=== PATIENT | female | born 1985 | race Caucasian/White ===

== ENCOUNTER 2016-05-27 13:52 | Emergency (ER) | payer OTHER ==
[2016-05-27] MEDS ORDERED: CYCLOBENZAPRINE HCL 10 MG TABLET ONE (14:31)
== END 2016-05-27 14:47 | disposition home or self-care (01) ==
LOC: ED 13:52
DX: S16.1XXA Strain of muscle, fascia and tendon at neck level, initial encounter (principal); F17.290 Nicotine dependence, other tobacco product, uncomplicated; V43.52XA Car driver injured in collision with other type car in traffic accident, initial encounter; Y92.410 Unspecified street and highway as the place of occurrence of the external cause